=== PATIENT | male | born 1985 | race Caucasian/White ===

== ENCOUNTER 2022-03-05 15:10 | Emergency (ER) | payer OTHER ==
[~2022-03-05] VITALS: Ht 185.4 cm; Wt 84.1 kg
[2022-03-05] MEDS ORDERED: LIDOCAINE W/EPINEPHRINE 1% 20ML VIAL SC ONE (19:45)
[2022-03-05] MEDS ORDERED: ceFAZolin SOD 2 GM in IV 1 EA IV ONE (20:50)
[2022-03-05] MEDS ORDERED: CEPH500C PO (21:28)
[2022-03-05] MEDS ORDERED: CEPHALEXIN 500 MG CAP PO ONE (21:30)
[2022-03-05 22:13] VITALS: BP 125/76
== END 2022-03-05 22:14 | disposition home or self-care (01) ==
LOC: M ED 15:10
DX: S62.630B Displaced fracture of distal phalanx of right index finger, initial encounter for open fracture (principal); W23.0XXA Caught, crushed, jammed, or pinched between moving objects, initial encounter; Y92.89 Other specified places as the place of occurrence of the external cause; Y99.0 Civilian activity done for income or pay; F17.210 Nicotine dependence, cigarettes, uncomplicated
CPT/HCPCS: 12001; 73140; 96365; 99284; J0690